=== PATIENT | female | born 1980 | race Caucasian/White ===

== ENCOUNTER 2022-05-26 08:50 | Outpatient (CLI) | payer OTHER, SELFPAY ==
--- OUTSIDE RECORDS SUMMARY | 2022-05-26 08:53 | XMS_ITS | Encounter Summary ---
:1980 Author Organization [facility] Address [address] [place] [address] Care Team Providers Name Role Phone Unavailable Primary Care Provider Unavailable Reason for Visit Reason Comments Med Refill Encounter Details Date Type Department Care Team Description 01/24/2018 Refill Department of Obstetrics and Zachery, Ernesto Ca Jr., Med [facility] [address] [place] [address] [place] [address] [phone] Social History Tobacco Use Types Packs/Day Years Used Date Smoking Tobacco: Never Sex Assigned at Date Recorded Not on file documented as of this encounter Miscellaneous Notes Telephone Encounter - Stephanie Null RDN, [place] - 01/24/2018 8:06 AM CDT Nurse review: Unable to pend medication; Not on medication profile Primary Provider: No primary care provider on file. Request coming to attention Dr. Bingham Name of medication: Valacyclovir Strength: 500 mg tablets Frequency: take 1 tablet by mouth twice daily for 3 days Quantity: 6 Refills: 0 Last Refill: 04/12/17 Pharmacy: [facility] documented in this encounter Plan of Treatment Not on filedocumented as of this encounter Visit Diagnoses Not on filedocumented in this encounter
--- OUTSIDE RECORDS SUMMARY | 2022-05-26 08:53 | XMS_ITS | Encounter Summary ---
:1980 Author Organization [facility] Address [address] [place] [address] Care Team Providers Name Role Phone Unavailable Primary Care Provider Unavailable Reason for Visit Reason Comments Med Refill Encounter Details Date Type Department Care Team Description 02/08/2018 Refill Department of Obstetrics and Zachery, Ernesto Ca Jr., Med Refill Gynecology in Zoe Villagomez [place] [address] [address] [place], [place] [phone] [phone] Social History Tobacco Use Types Packs/Day Years Used Date Smoking Tobacco: Never Sex Assigned at Date Recorded Not on file documented as of this encounter Plan of Treatment Not on filedocumented as of this encounter Visit Diagnoses Not on filedocumented in this encounter
--- OUTSIDE RECORDS SUMMARY | 2022-05-26 08:53 | XMS_ITS | Encounter Summary ---
:1980 Author Organization [facility] Address [address] [place] [address] Care Team Providers Name Role Phone Unavailable Primary Care Provider Unavailable Encounter Details Date Type Department Care Team Description 01/27/2021 Orders Only [facility] Sa santo Brown M.D. [address] [place] [address] [phone] (Wo rk) Social History Tobacco Use Types Packs/Day Years Used Date Smoking Tobacco: Never Sex Assigned at Date Recorded Not on file documented as of this encounter Plan of Treatment Not on filedocumented as of this encounter Visit Diagnoses Not on filedocumented in this encounter
--- OUTSIDE RECORDS SUMMARY | 2022-05-26 08:53 | XMS_ITS | Encounter Summary ---
:1980 Author Organization [facility] Address [address] [place] [address] Care Team Providers Name Role Phone Unavailable Primary Care Provider Unavailable Reason for Visit Reason Comments PAT Nurse Jaye Encounter Details Date Type Department Care Team Description 05/31/2020 Clinical Communication Division of PAT Thompson Nurse Jaye [facility] Internal Sylvia Lawrence [facility] [phone] [facility] (Work) [place], [place] [address] [place] [address] Social History Tobacco Use Types Packs/Day Years Used Date Smoking Tobacco: Never Sex Assigned at Date Recorded Not on file documented as of this encounter Miscellaneous Notes Telephone Encounter - Ruy Thompson R.N., Baseball Player - 05/31/2020 8:16 AM CDT COVID-19 Nurse Line Screening ASSESSMENT COVID 19 Screening Have you had close contact with a person who has a LABORATORY CONFIRMED case of COVID-19?: Yes - Continue screening. In the last 48 hours have you had any of the following symptoms?: New sore throat Do you have any urgent symptoms?: None- Patient meets criteria for testing. PLAN Endpoint recommendation: Screening positive, testing indicated, advised to be swabbed for COVID-19, sent to [place] located [address] to back of the clinic; cannot access from main parking lot. Testing hours are daily 10 am to 6 pm. When you arrive stay in your car and someone will direct you. Care Points provided: STANDARD PRECAUTIONS FOR ALL PATIENTS: Wash hands often with soap and water for at least 20 seconds, especially after blowing your nose, coughing, sneezing, or having been in a public place. If soap and water aren't available, use a hand television news anchor that contains at least 60% alcohol. Avoid close contact with anyone who may be exhibiting respiratory symptoms such as coughing and sneezing. Avoid touching your eyes, nose and mouth. Clean and disinfect frequently touched surfaces daily. Cover your mouth and nose with a cloth face cover when around others or in public. The cloth face cover is not a substitute for social distancing. Continue to keep about 6 feet between yourself andothers. Monitor for symptoms. Do not take your temperature within 30 minutes of exercise. If your test or screen is negative and new symptoms develop please contact your provider if it has been greaterthan 72 hours since you were tested. Educational Resource: https://www.cdc.gov/coronavirus/2019-ncov/ nnzzhdj-grvucng-ffyb/index.html RECOMMENDATIONS TESTING CRITERIA IS MET: Stay home except to get medical care. Quarantine for 14 days if exposed to someone with a laboratory confirmed case of COVID-19 exposure regardless of your test results. Avoid public areas and public transportation. Separate yourself from other people and stay in a specific sick room if possible. Wear a cloth face covering, over your nose and mouth if youmust be around other people even at home). Cover your nose and mouth when coughing or sneezing. Contact employer/occupational health department to notify them that they are being tested. Seek emergent care if any of the following occur: 1) Trouble breathing, 2) Bluish lips or face, 3) Persistent pain or pressure in the chest, 4) Newly confused or unable to stay alert and awake. Notify appropriate care provider if any new or worsening symptoms. You may need re-testing if it has been greater than 72 hours after a negative COVID- 19 test result. Education Resources: https://www.cdc.gov/coronavirus/2019- ncov/kn-jtc-qye-sick/dnkne-kukh-njzi.html SELF CARE FOR ALL PATIENTS: Take breaks from watching, reading, or listening to news stories. Make time to unwind. Try to do some other activities you enjoy. Connect with others. Be creative in keepingconnected with loved ones, especially those at high risk. Try healthy coping strategies such as meditation, relaxation, exercise, healthy eating habits, and avoid alcohol and drugs. Education: patient/caregiver Patient/caregiver able to teach back Patient agreeable to plan of care: Yes The following references were used: [facility] novel coronavirus (COVID- 19) resources Nursing judgement documented in this encounter Plan of Treatment Not on filedocumented as of this encounter Visit Diagnoses Not on filedocumented in this encounter
--- OUTSIDE RECORDS SUMMARY | 2022-05-26 08:53 | XMS_ITS | Encounter Summary ---
:1980 Author Organization [facility] Address [address] [place] [address] Care Team Providers Name Role Phone Unavailable Primary Care Provider Unavailable Encounter Details Date Type Department Care Team Description 12/30/2015 Hospital Encounter HX [facility] Logan Hernandez Jr., M.D. [address] [place] [address] [phone] (Wo rk) Social History Tobacco Use Types Packs/Day Years Used Date Smoking Tobacco: Never Assessed Sex Assigned at Date Recorded Not on file documented as of this encounter Last Filed Vital Signs Vital Sign Reading Time Taken Comments Blood Pressure 112/66 12/30/2015 10:05 AM CDT Pulse - - Temperature - - Respiratory Rate - - Oxygen Saturation - - Inhaled Oxygen Concentration - - Weight 47.4 kg (104 lb 8 oz) 12/30/2015 10:05 AM CDT Height - - Body Mass Index - - documented in this encounter Progress Notes Logan Hernandez Jr., M.D. - 12/30/2015 10:00 AM CDT [id number] CHIEF COMPLAINT/REASON FOR VISIT Patient complains of vaginal and vulvar irritation. It started a couple days after surgery which shehad 1 week ago. It started with some vaginal discharge and then vulvar irritation. It has been very irritating. She started Instant Buckingham soaks yesterday and has had some slight improvement. She did take some Benadryl and slept better. She has not been sexually active. She has had no fevers. PHYSICAL EXAMINATION VITAL SIGNS: Please see medical record for vitals. ABDOMEN: Soft, nontender. Incisions have healed well. GENITOURINARY: External genitalia shows some ulcerative lesions, similar in appearance to type 1 herpes, though she has no history of this or any recent exposure. She does have some cracking of her skin, and this is mostly on the labia majora region. Internally she does have some discharge. Wet prep is sent. Cervix appears to be mildly irritated. Vaginal delgado are normal. This area is very tender. IMPRESSION/REPORT/PLAN Patient with what appears to be an allergic reaction to surgical prep but possibly mild bacterial superinfection. We have sent test for herpes as well as a wet prep. We will start her on a low dose of prednisone 20 mg a day for a few days as well as start her on Keflex 250 mg 4 times a day. She will continue with Instant Buckingham soaks. She will let us know tomorrow how she is doing. Logan Hernandez M.D./deanna Electronically Signed By: LOGAN HERNANDEZ MD On: 12/30/2015 02:49 PM Source: [facility] [email or web address] Document Id: [id number] documented in this encounter Miscellaneous Notes Miscellaneous - Kay Hassan R.N. - 05/31/2016 10:40 AM CDT *Medication Refill Msg Document Contains Addenda Addendum by LOGAN HERNANDEZ MD on May 31, 2016 12:29:58 CDT From: LOGAN HERNANDEZ MD To: KAY HASSAN RN; Sent: 05/31/2016 12:29:58 CDT Subject: RE: *Medication Refill Msg Actions: Notify patient of Future Order Addendum by LOGAN HERNANDEZ MD on May 31, 2016 12:29:48 CDT Submitted: Order:valACYclovir (Valtrex 500 mg oral tablet) 1 tab(s) PO 2xDay Qty: 6 tab(s) Duration: 3 day(s) Refills: 10 Substitutions Allowed Route To Pharmacy - [facility] [id number] Signed by LOGAN HERNANDEZ MD From: KAY HASSAN RN To: LOGAN HERNANDEZ MD; Sent: 05/31/2016 10:40:56 CDT Subject: *Medication Refill Msg Caller is: ( ) Patient ( ) Mother ( ) Father ( ) Spouse ( ) Daughter ( ) Son ( ) Pharmacy ( ) Other: Provider: Pharmacy:[facility] Name of Medications Needing Refill:valacyclovir 500mg tabs - one tab po twice daily for 3 days prnrecurrence Last Refill Date:02-29-16 #6 Additional Information: Last / Future Appointment:01-08-16 Disposition: ( ) Send to Pharmacy ( ) Call to Pharmacy ( ) 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 Script ( ) Mail Rx to Patient Source: [facility] [employer] Document Id: [id number] Electronically signed by [facility] Tie Bucker [id number] at 02/26/2017 3:19 PM CDT Miscellmeghana - Maddie Montemayor RJoseNJose - 12/30/2015 10:30 AM CDT Floor Trader Documentation Floor Trader Documentation Entered On: 12/30/2015 16:35 CDT Performed On: 12/30/2015 10:30 CDT by MADDIE MONTEMAYOR LPN Floor Trader Documentation Exam/Procedure Performed : pelvic exam CD Floor Trader Present : Yes CD Floor Trader Name : Maddie Montemayor LPN Present in Room During Exam/Procedure : Alone MADDIE MONTEMAYOR LPN - 12/30/2015 16:35 CDT Source: [facility] AutoquakeCHART Document Id: [id number] CDT!6 Nenacellmeghana - Maddie Montemayor R.N. - 12/30/2015 10:05 AM CDT Adult Mainstreaming Facilitator Intake/History Adult Mainstreaming Facilitator Intake/History Entered On: 12/30/2015 10:05 CDT Performed On: 12/30/2015 10:05 CDT by MADDIE MONTEMAYOR LPN Intake Chief Complaint : post op Systolic Blood Pressure : 112 mmHg Diastolic Blood Pressure : 66 mmHg NIBP Mean : 81 mmHg BP Location : Left upper extremity Blood Pressure Cuff Size : Regular Actual Weight : 47.4 kg(Converted to: 104 lb 8 oz) Dosing Weight Clinic : 47.4 kg SIMMADDIE LPN - 12/30/2015 10:05 CDT General Info Languages : [place] Is Patient Female and 13-50 no hysterectomy : Yes Status : Patient denies Are you ? : No MADDIE MONTEMAYOR LPN - 12/30/2015 10:05 CDT Subjective Pain Symptoms : No MADDIE MONTEMAYOR LPN - 12/30/2015 10:05 CDT Dependent Habits Smoking Status : Never smoker Tobacco 2A : No Tobacco Use/Currently Using : No Tobacco Use/Last 30 Days : No Tobacco Use/Last 12 months : No MADDIE MONTEMAYOR LPN - 12/30/2015 10:05 CDT Source: [facility] POWERCHART Document Id: [id number] CDT!23 documented in this encounter Plan of Treatment Not on filedocumented as of this encounter Procedures Procedure Name Priority Date/Time Associated Comments Diagnosis HERPES SIMPLEX VIRUS Routine 12/30/2015 10:33 AM Results for this PCR CDT procedure are i n the results section. WET PREP EXAM, Routine 12/30/2015 10:33 AM Result s for this UROGENITAL CDT procedure are i n the results section. documented in this encounter Results Herpes Simplex Virus PCR (12/30/2015 10:33 AM CDT) athologist Signature HXHSV PCR VAGINAL POWERCHART [facility] HSV 1 PCR, B Positive Negative POWERCHART HSV 2 PCR, B Negative Negative POWERCHART Comment: ADDITIONAL INFORMATIO N Analyte Specific Reagent: This test was developed and its performance characteristics determined b y [facility]. It has not been cleared or approved by the U.S. Food and Drug Administration. Test Performed by: [facility] - [address] [address] Leather Softener: Eloy Starr II, M.D., Ph.D. Specimen (Source) Anatomical Collection Method Collection Time Re ceived Time Location / / Volume Laterality Nicole Review 12/30/2015 10:33 AM CDT Logan Hernandez Jr., M.D. LAB MICROBIOLOGY - GENERAL O DEJA Performing Organization Address City/[facility] Phon e Number POWERCHART Wet Prep Exam, Urogenital (12/30/2015 10:33 AM CDT) P athologist Signature HXWet Prep POWERCHART HXFinal No yeast, POWERCHART Trichomonas , clue cells, or sperm seen. Specimen (Source) Anatomical Collection Method Collection Time Re ceived Time Location / / Volume Laterality Vagina 12/30/2015 10:33 AM CDT Logan Hernandez Jr., M.D. LAB MICROBIOLOGY - GENERAL O DEJA Performing Organization Address City/State/[facility] Phon e Number POWERCHART documented in this encounter Visit Diagnoses Not on filedocumented in this encounter
--- OUTSIDE RECORDS SUMMARY | 2022-05-26 08:53 | XMS_ITS | Encounter Summary ---
:1980 Author Organization [facility] Address [address] [place] [address] Care Team Providers Name Role Phone Unavailable Primary Care Provider Unavailable Encounter Details Date Type Department Care Team Description 07/07/2017 Hospital Encounter HX [facility] Logan Hernandez Jr., M.D. [address] [place] [address] [phone] (Wo rk) Social History Tobacco Use Types Packs/Day Years Used Date Smoking Tobacco: Never Sex Assigned at Date Recorded Not on file documented as of this encounter Last Filed Vital Signs Vital Sign Reading Time Taken Comments Blood Pressure 108/60 07/07/2017 9:56 AM CDT Pulse 84 07/07/2017 9:56 AM CDT Temperature - - Respiratory Rate 16 07/07/2017 9:56 AM CDT Oxygen Saturation - - Inhaled Oxygen Concentration - - Weight 51 kg (112 lb 7 oz) 07/07/2017 9:56 AM CDT Height 151.4 cm (4' 11.61) 07/07/2017 9:56 AM CDT Body Mass Index 22.25 07/07/2017 9:56 AM CDT documented in this encounter Medications at Time of Discharge Medication Sig Dispensed Refills Start Date End Date LORazepam (ATIVAN) 0.5 mg Take 1 tablet by 0 01/201702/08/2018 tablet mouth 2 (two) times a day as needed. documented as of this encounter H&P Notes Logan Hernandez Jr., M.D. - 07/07/2017 9:43 AM CDT [id number] CHIEF COMPLAINT/REASON FOR VISIT Annual examination. HISTORY OF PRESENT ILLNESS Kip is a 37-year-old 2, para 2-0-0-2 female status post BTC with LMP of 06/15/2017 who presents today for her annual examination. She experiences intermittent cuts in her vaginal area ever since her type 1 HSV vulvar sores healed. Her periods have been reasonable, with first day typically heavy. Bladder and bowel function have been fine. The patient reports worsened anxiety and becomes easily tearful, mostly related to her job. She willbe switching jobs in the near future. Kip realizes that her anxiety is better managed when she exercises regularly. She does not want to take something daily, though is interested in taking somethingas needed. Her migraines have been very well-managed with as needed Imitrex. Kip is due for pap smear. She otherwise follows with Dr. Guy Lange for the rest of her preventative care services. There are no further concerns at this time. MEDICATIONS Imitrex as needed. ALLERGIES Nubain. SYSTEMS REVIEW Positive for vaginal fissures and anxiety. All other systems reviewed and negative except per HPI. PAST MEDICAL/SURGICAL HISTORY 1. Type 1 HSV. 2. Migraine headaches. 3. Arthroscopy of knee joint. 4. section x2, with the last one on 05/31/2007 for a viable girl. 5. Laparoscopic bilateral tubal coagulation on 12/23/2015. PREVENTIVE SERVICES: Patient receives preventative services at [facility] and these records are currently not available for my review. SOCIAL HISTORY Patient does not smoke. She occasionally drinks. Employed, will be switching jobs soon. Not currently exercising regularly but is planning on resuming. FAMILY HISTORY No known history of cancer. VITAL SIGNS HEIGHT: 151.4 cm. WEIGHT: 51.0 kg. BMI: 22.25 kg/m2. TEMP: 37.3 Deg C. PULSE: 84 /min. RESP RATE: 16 /min. SYSTOLIC: 108 mmHg. DIASTOLIC: 60 mmHg. PHYSICAL EXAMINATION GENERAL: Patient appears well groomed and well nourished. No acute distress. Oriented times three. SKIN: Normal without any evidence of rashes or lesions. HEAD: Normocephalic. ENT: Trachea midline. LYMPH NODES: Neck is supple. No significant adenopathy. THYROID: Not enlarged. Regular in contour. BREASTS: Denser tissue noted in the upper portions bilaterally. There are no masses, no lymphadenopathy and no nipple discharge. Please note that medical sociologist, Lima Cantu, was present as senior business analyst for breast exam. HEART: Regular rate and rhythm without murmurs, rubs or gallops. No evidence of any peripheral vascular disease. LUNGS: Clear to auscultation with good inspiratory effort. ABDOMEN: Soft and nontender. No masses, hepatosplenomegaly or hernias noted. No enlarged groin nodespalpable. PELVIS: Vagina and cervix appear normal without lesions, discharge or rashes. There is a closed fissure noted just above her urethra. Pap smear is done. Uterus is anteverted, small, mobile and nontender. Adnexa are without masses or tenderness. Please note that medical sociologist, Lima Cantu, was presentas senior business analyst for pelvic exam. RECTUM: Deferred. GENITALIA: External genitalia, Bartholin's, urethral, and [place]'s glands within normal limits. DIAGNOSTIC Pap smear was done today with results pending. IMPRESSION/REPORT/PLAN 37-year-old 2, para 2-0-0-2 female status post BTC with normal menstrual cycles. Significantfor vaginal fissures and anxiety. Normal SKEWER UP examination besides for closed fissure. PLAN: 1. Health care maintenance: Pap smear was done today with results pending. Routine mammogram will begin at age 38. Recommendations are given for good posture. Patient will follow up with Dr. Lange for the remained of her preventative care services. 2. Contraception: Status post BTC. 3. Vaginal fissures: I recommended using lubrication with intercourse, and regular soaking such as with Instant [place]. I discouraged using toilet paper. We may consider trying topical estrogen for local administration. 4. Anxiety: Patient would like something to take as needed, and elects to try lorazepam 0.5 mg tablet by mouth up to twice a day as needed for anxiety. I discussed how this medication works, reviewed potential side effects, and answered any questions. I discouraged daily reliance on this medication, and recommended following up if she needs something daily. Patient will be changing jobs soon, and plans on making lifestyle modifications including getting back into exercise for management of her symptoms. 5. Follow up: Patient will return in one year for annual exam. She will contact the clinic with any CORPORATE FITNESS PROGRAM COORDINATOR related concerns. This document serves as a record of services personally performed by Logan Hernandez MD. It was created on their behalf by Lima Cantu, a trained medical sociologist. The creation of this record is based on the scribe's personal observations and the provider's statements to them. This document has been check ed and approved by the attending provider. Logan Hernandez M.D./shiela Electronically Signed By: LOGAN HERNANDEZ MD On: 07/07/2017 12:50 PM Source: [facility] [email or web address] Document Id: [id number] documented in this encounter Miscellaneous Notes Miscellaneous - Logan Hernandez Jr., M.D. - 07/18/2017 9:47 AM CDT From: LOGAN HERNANDEZ MD To: KIP GREENE Sent: 07/18/2017 09:47:07 CDT joe Shin for taking my call. Source: [facility] POWERCHART Document Id: [id number] Telephone Encounter - Kalee Pedersen L.P.N. - 07/15/2017 3:41 PM CDT FW: Follow-up on Test From: KALEE PEDERSEN LPN ( Obstetrics/Gynecology Nurse) To: LOGAN HERNANDEZ MD; Sent: 07/15/2017 15:41:18 CDT Subject: FW: Follow-up on Test From: KIP GREENE To: [facility] (CORPORATE FITNESS PROGRAM COORDINATOR) ( Obstetrics/Gynecology Nurse) Sent: 07/15/2017 03:39 p.m. CDT Subject: Follow-up on Test Thank you for your message. It has been successfully sent to the appropriate care team. Hi Dr. Hernandez, Yes, please do contact me next week. Preferably Tuesday if possible as I am out of town for work Tuesday-Tuesday. I want to understand what the test results mean and what I can or should do. Thank you, Kip Marerinn From: LOGAN HERNANDEZ MD To: KIP GREENE Sent: 07/15/2017 13:12:03 CDT Kip, your pap is ok. HPV test shows you have an exposure to the HPV virus, but not to the types weare concerned about neo are linked to cervical cancer. I would repeat your pap in one year. Happy totalk about this next week if you wish. Source: [facility] Document Id: [id number] Logan Pino Jr., M.D. - 07/15/2017 1:12 PM CDT From: LOGAN HENRANDEZ MD To: KIP GREENE Sent: 07/15/2017 13:12:03 CDT Kip, your pap is ok. HPV test shows you have an exposure to the HPV virus, but not to the types weare concerned about neo are linked to cervical cancer. I would repeat your pap in one year. Happy totalk about this next week if you wish. Source: [facility] Document Id: [id number] [place] - Court Romo L.P.N. - 07/07/2017 9:56 AM CDT Adult Business Continuity Management Director Intake/History Adult Business Continuity Management Director Intake/History Entered On: 07/07/2017 9:59 CDT Performed On: 07/07/2017 9:[address] ROMO LPN Intake Chief Complaint : Annual exam LMP Date : 06-15-2017 Temperature Core : 37.3 DegC(Converted to: 99.1 DegF) Peripheral Pulse Rate : 84 /min Respiratory Rate : 16 /min Systolic Blood Pressure : 108 mmHg Diastolic Blood Pressure : 60 mmHg NIBP Mean : 76 mmHg Height : 151.4 cm(Converted to: 5 ft 0 inch(es), 60 inch(es)) Actual Weight : 51.0 kg(Converted to: 112 lb 7 oz) Dosing Weight Clinic : 51 kg Clinic BSA : 1.46 Body Mass Index : 22.25 kg/m2 COURT ROMO LPN - 07/07/2017 9:56 CDT General Info Information Given By : Patient Languages : Faroese Is Patient Female and 13-50 no hysterectomy : Yes Status : Patient denies Are you ? : No COURT ROMO LPN - 07/07/2017 9:56 CDT Subjective Pain Symptoms : No COURT ROMO LPN - 07/07/2017 9:56 CDT Dependent Habits Exposure to Tobacco Smoke : Lives with someone who smokes Smoking Status : Never smoker Tobacco 2A : No Tobacco Use/Currently Using : No Tobacco Use/Last 30 Days : No Tobacco Use/Last 12 months : No COURT ROMO LPN - 07/07/2017 9:56 CDT Source: [facility] Document Id: [id number] CDT!30 documented in this encounter Plan of Treatment Not on filedocumented as of this encounter Visit Diagnoses Not on filedocumented in this encounter
--- OUTSIDE RECORDS SUMMARY | 2022-05-26 08:53 | XMS_ITS | Encounter Summary ---
:[address] [facility] Address [address] [place] [address] Care Team Providers Name Role Phone Unavailable Primary Care Provider Unavailable Encounter Details Date Type Department Care Team Description 12/23/2015 Hospital Encounter HX NO MAPPING Robe Bingham Jr., M.D. [address], [place] [phone] (Wo rk) Social History Tobacco Use Types Packs/Day Years Used Date Smoking Tobacco: Never Assessed Sex Assigned at Date Recorded Not on file documented as of this encounter Plan of Treatment Not on filedocumented as of this encounter Procedures Procedure Name Priority Date/Time Associated Comments Diagnosis ZZPATHOLOGY NON-ASSISTANT ART DIRECTOR Routine 12/23/2015 12:00 Resu lts for this CYTOLOGY AM CDT procedure are i n the results section. ZZPATHOLOGY NON-ASSISTANT ART DIRECTOR Routine 12/23/2015 12:00 Resu lts for this CYTOLOGY AM CDT procedure are i n the results section. documented in this encounter Results ZZPATHOLOGY NON-ASSISTANT ART DIRECTOR CYTOLOGY (12/23/2015 12:00 AM CDT) Specimen (Source) Anatomical Location Collection Method / Collectio n Time Received Time / Laterality Volume 12/23/2015 Narrative [facility] - 12/29/19 16 11:32 AM CDT Historical Provider LAB PATHOLOGY/CYTOLOGY ORDER HELADIO Performing Organization Address City/State/ZIP Code Phon e Number [facility] ZZPATHOLOGY NON-ASSISTANT ART DIRECTOR CYTOLOGY (12/23/2015 12:00 AM CDT) Specimen (Source) Anatomical Location Collection Method / Collectio n Time Received Time / Laterality Volume 12/23/2015 [facility] - 12/29/19 16 11:32 AM CDT PATIENT IMAGES Choose the Image button to view related documents. Historical Provider LAB PATHOLOGY/CYTOLOGY ORDER HELADIO Performing Organization Address City/State/ZIP Code Phon e Number [facility] documented in this encounter Visit Diagnoses Not on filedocumented in this encounter
--- OUTSIDE RECORDS SUMMARY | 2022-05-26 08:53 | XMS_ITS | Encounter Summary ---
:1980 Author Organization [facility] Address [address] [place] [address] Care Team Providers Name Role Phone Unavailable Primary Care Provider Unavailable Encounter Details Date Type Department Care Team Description 12/22/2015 Hospital Encounter HX [facility] Logan Hernandez Jr., M.D. [address] [place] [address] [phone] (Wo rk) Social History Tobacco Use Types Packs/Day Years Used Date Smoking Tobacco: Never Assessed Sex Assigned at Date Recorded Not on file documented as of this encounter Last Filed Vital Signs Vital Sign Reading Time Taken Comments Blood Pressure 126/72 12/22/2015 2:19 PM CDT Pulse 66 12/22/2015 2:19 PM CDT Temperature - - Respiratory Rate - - Oxygen Saturation - - Inhaled Oxygen Concentration - - Weight 46.1 kg (101 lb 10.1 oz) 12/22/2015 2:19 PM CDT Height - - Body Mass Index - - documented in this encounter H&P Notes Logan Hernandez Jr., M.D. - 12/22/2015 2:15 PM CDT [id number] CHIEF COMPLAINT/REASON FOR VISIT Consultation for sterilization. HISTORY OF PRESENT ILLNESS Kip is a 35-year-old, 2, para 2-0-0-2 female who presents to the clinic in consultation for sterilization. She is positive that she would like to proceed with sterilization. She states that her periods are regular when she is not on control. Dr. Cisneros prescribed Reclipsen for to skip periods since they cause very bad migraines. She recently ran out of her medication and she states that her migraines actually resolved. Patient takes sumatriptan at the start of her headaches and this works well for her. Patient says that she has pain around her left lower quadrant whenever she sneezes. She does not have leakage of urine when coughing. No pain with sexual intercourse. MEDICATIONS Reclipsen 0.15 mg-0.03 mg by mouth daily. Sumatriptan ALLERGIES Nubain causes throat swelling. SYSTEMS REVIEW Please see HPI for pertinent positives, otherwise rest of ROS is negative. PAST MEDICAL/SURGICAL HISTORY Arthroscopy of knee joint. section 2x with the last one on 05/31/2007 for a viable girl. PREVENTIVE SERVICES: Patient receives preventative services at [facility] and these records are currently not available for my review. SOCIAL HISTORY Patient does not smoke. She occasionally drinks. She works in [employer]. PHYSICAL EXAMINATION VITAL SIGNS: weight 46.1kg, blood pressure 126/72 GENERAL: Patient appears well groomed and well nourished. No acute distress. Oriented times three. HEAD: Normocephalic. ENT: Trachea midline. LYMPH NODES: Neck is supple. No significant adenopathy. THYROID: Not enlarged. Regular in contour. HEART: Regular rate and rhythm without murmurs, rubs or gallops. No evidence of any peripheral vascular disease. LUNGS: Clear to auscultation with good inspiratory effort. ABDOMEN: Soft and nontender. No masses, hepatosplenomegaly or hernias noted. No enlarged groin nodespalpable. PELVIS: Vagina and cervix appear normal without lesions, discharge or rashes. Uterus is anteverted, small, mobile and nontender. Adnexa are without masses or tenderness. Please note that wild Raphael scribe was present as a visual merchandising specialist for pelvic exam. IMPRESSION/REPORT/PLAN 1. Sterilization: Patient elects to proceed with laparoscopic BTL, and this is scheduled for 12/23/15 at [facility]. I will check for any possible causes for LLQ pain corresponding to her section scar at that time. Pre-op exam is done today, and sleep apnea screen is negative. Surgical consent is signed. Patient is healthy and cleared to proceed with surgery. She knows to be NPO for 8 hours prior to procedure. Risks, benefits and alternatives were discussed today. 2. Follow up: Patient will present to [facility] on 12/23/2015 for BTL. She will contact the clinic prior to that time with questions or concerns. This document serves as a record of services personally performed by Logan Hernandez MD. It was created on their behalf by Saida Robles, a trained medical records supervisor. The creation of this record is basedon the scribe's personal observations and the provider's statements to them. This document has been c hecked and approved by the attending provider. Logan Hernandez M.D./liliam Electronically Signed By: LOGAN HERNANDEZ MD On: 12/22/2015 03:00 PM Source: [facility] MHSDOLBEYNONRADSYS Document Id: [id number] documented in this encounter Miscellaneous Notes Telephone Encounter - Makenzie Carmichael, L.P.N. - 12/31/2015 12:04 PM CDT *Phone Message From: MAKENZIE CARMICHAEL LPN ( Obstetrics/Gynecology Nurse) To: LOGAN HERNANDEZ MD; Sent: 12/31/2015 12:04:56 CDT Subject: *Phone Message Caller is: ( x ) Patient ( ) Mother ( ) Father ( ) Spouse ( ) Daughter ( ) Son ( ) Pharmacy ( ) Other: Physician: Patient MRN #: Reason for Call: Patient called and left message with an update per Dr. Lange. States that they medication has helped and the swelling has gone down. The spots have mostly gone away but notices irritation with draining. Any other questions call [phone] Message: Advice/Action: Source used: ( ) Verbalizes understanding of instructions ( ) Instructed to call back if symptoms worsen or do not resolve ( ) Refused to see provider ( ) Appointment Scheduled ( ) OK to leave message on voice mail ( ) Patient told to expect return call: ( ) today ( ) tomorrow ( ) next work day ( ) Patient's email ( ) Patient told physician out of office, will call upon return call on ( ) ( ) Patient told physician out of office, routed to other physician ( ) Other ( ) Call back telephone number ( ) Call back cell phone number ( ) Source: [facility] POWERCHART Document Id: [id number] Electronically signed by Conversion, [facility] Open Hearth Furnace Operator [id number] at 02/26/2017 3:19 PM CDT Telephone Encounter - Conversion, Historical Provider Ser - 12/29/2015 8:04 AM CDT *Phone Message/Zachery Document Contains Addenda Addendum by HARINDER ZIMMER LPN on December 30, 2015 09:49:33 CDT Appt. scheduled. Addendum by LOGAN HERNANDEZ MD on December 30, 2015 09:44:06 CDT From: LOGAN HERNANDEZ MD To: Obstetrics/Gynecology Nurse; Sent: 12/30/2015 09:44:06 CDT Subject: RE: *Phone Message/Zachery coming in in 15 Addendum by MADDIE MONTEMAYOR LPN on December 30, 2015 08:36:54 CDT From: MADDIE MONTEMAYOR LPN ( Obstetrics/Gynecology Nurse) To: LOGAN HERNANDEZ MD; Sent: 12/30/2015 08:36:54 CDT Subject: RE: *Phone Message/Zachery Kip called with an update this morning - she is still very sore and has blisters. She did everything that you suggested yesterday. [phone] Addendum by LOGAN HERNANDEZ MD on December 29, 2015 11:32:04 CDT From: LOGAN HERNANDEZ MD To: Obstetrics/Gynecology Nurse; Sent: 12/29/2015 11:32:04 CDT Subject: RE: *Phone Message/Zachery I talked with her, can you call her tomorrow afternoon if she does not call us to check if its better. Will use benadryl and instant ocean. Addendum by MADDIE MONTEMAYOR LPN on December 29, 2015 08:11:55 CDT From: MADDIE MONTEMAYOR LPN ( Obstetrics/Gynecology Nurse) To: LOGAN HERNANDEZ MD; Sent: 12/29/2015 08:11:55 CDT Subject: FW: *Phone Message/Zachery From: YOSEF SIDDIQUI ([facility] Floorperson) To: Obstetrics/Gynecology Nurse; Sent: 12/29/2015 08:04:26 CDT Subject: *Phone Message/Zachery Caller is: ( x) Patient ( ) Mother ( ) Father ( ) Spouse ( ) Daughter ( ) Son ( ) Pharmacy ( ) Other: Physician: Patient MRN #: Reason for Call: Patient is had surgery last Tuesday and is really sore from all the drainage she ishaving. She has tried Epson Salt baths ad yeast infection cream. Nothing helps. Is there anything else she can do? Please call her at [phone] Message: Advice/Action: Source used: ( ) Verbalizes understanding of instructions ( ) Instructed to call back if symptoms worsen or do not resolve ( ) Refused to see provider ( ) Appointment Scheduled ( ) OK to leave message on voice mail ( ) Patient told to expect return call: ( ) today ( ) tomorrow ( ) next work day ( ) Patient's email ( ) Patient told physician out of office, will call upon return call on ( ) ( ) Patient told physician out of office, routed to other physician ( ) Other ( ) Call back telephone number ( ) Call back cell phone number ( ) Source: [facility] POWERCHART Document Id: [id number] Miscellaneous - Maddie Montemayor RJoseN. - 12/22/2015 3:11 PM CDT Educational Aide Documentation Educational Aide Documentation Entered On: 12/22/2015 15:12 CDT Performed On: 12/22/2015 15:11 CDT by MADDIE MONTEMAYOR LPN Educational Aide Documentation Exam/Procedure Performed : pelvic exam CD Educational Aide Present : Yes CD Educational Aide Name : Saida Robles medical records supervisor Present in Room During Exam/Procedure : Alone MADDIE MONTEMAYOR LPN - 12/22/2015 15:11 CDT Source: [facility] POWERCHART Document Id: [id number] CDT!6 Telephone Encounter - Maddie Montemayor RBoo - 12/22/2015 2:54 PM CDT FB surgery prior auth Document Contains Addenda Addendum by LYLE PHELPS on December 23, 2015 10:19:08 CDT From: LYLE PHELPS ([facility] Fixed Income Director/Prior Authorizations) To: Obstetrics/Gynecology Nurse; Sent: 12/23/2015 10:19:08 CDT Subject: RE: FB surgery prior auth No auth needed per [employer] From: MADDIE MONTEMAYOR LPN ( Obstetrics/Gynecology Nurse) To: [facility] Fixed Income Director/Prior Authorizations; Sent: 12/22/2015 14:54:48 CDT ! Subject: FB surgery prior auth [facility] Surgery Clinic Checklist Patient Contact Number: [phone] Surgeon: Zachery Surgical Service: (_) Orthopedics (_) General surgery (_) Ophthalmology (_) Podiatry (_) ENT (_) Urology (x) OB / Gynecology (_) Other Date of Surgery: 12-23-15 Place of Surgery: [facility] Pre-Admit FIN: _ Procedure (as written on Consent): laparoscopic bilateral tubal coagulation Right, Left, Bilateral, N/A: bilateral Diagnosis (reason for surgery): requests sterilization ICD-10: Z30.2 CPT: 16093 Work Comp: (_) No (_) Yes Surgeon Anticipated Time: _ Case Type: (x) Outpatient (_) AM Admit (_) Inpatient (_) Other Pre-op MD: _ Post-Op Appt:(time frame when to return) _ Surgery Brochure Given: (x) Yes (_) No (_) Mailed to Patient SPECIAL EQUIPMENT/SPECIAL INSTRUCTION: Special Equipment needed: _ Rep Needed: (_) No (_) Yes Special Instructions/Prep: _ Radiology Needs: _ OT Post-op Appt Needed: (_) No (_) Yes Ortho Patients Only Metal Removal: (_) No (_) Yes X-Ray Location (if not done in [facility]): _ CPM Post-op: (_) No (_) Yes- please make sure MD places order If Total Joint Case: Type of Prosthesis: _ Additional equipment: _ Has other side been done: (_) No (_) Yes Source: [facility] SpineFrontier Document Id: [id number] Electronically signed by Leland [facility] Open Hearth Furnace Operator [id number] at 02/26/2017 3:19 PM CDT Miscellaneous - Maddie Montemayor, R.N. - 12/22/2015 2:19 PM CDT Adult Public Works Director Intake/History Adult Public Works Director Intake/History Entered On: 12/22/2015 14:21 CDT Performed On: 12/22/2015 14:19 CDT by MADDIE MONTEMAYOR LPN Intake Chief Complaint : consult - sterilization LMP Date : 11/25/2015 Peripheral Pulse Rate : 66 /min Systolic Blood Pressure : 126 mmHg Diastolic Blood Pressure : 72 mmHg NIBP Mean : 90 mmHg BP Location : Right upper extremity Blood Pressure Cuff Size : Regular Actual Weight : 46.1 kg(Converted to: 101 lb 10 oz) Dosing Weight Clinic : 46.1 kg MADDIE MONTEMAYOR LPN - 12/22/2015 14:19 CDT General Info Languages : Cymro Is Patient Female and 13-50 no hysterectomy : Yes Status : Patient denies Are you ? : No MADDIE MONTEMAYOR LPN - 12/22/2015 14:19 CDT Subjective Pain Symptoms : No MADDIE MONTEMAYOR LPN - 12/22/2015 14:19 CDT Dependent Habits Smoking Status : Never smoker Tobacco 2A : No Tobacco Use/Currently Using : No Tobacco Use/Last 30 Days : No Tobacco Use/Last 12 months : No MADDIE MONTEMAYOR LPN - 12/22/2015 14:19 CDT Source: [facility] SpineFrontier Document Id: [id number] CDT!25 documented in this encounter Plan of Treatment Not on filedocumented as of this encounter Visit Diagnoses Not on filedocumented in this encounter
--- OUTSIDE RECORDS SUMMARY | 2022-05-26 08:53 | XMS_ITS | Encounter Summary ---
:1980 Author Organization [facility] Address [address] [place] [address] Care Team Providers Name Role Phone Unavailable Primary Care Provider Unavailable Encounter Details Date Type Department Care Team Description 01/08/2016 Hospital Encounter HX [facility] Logan Hernandez Jr., M.D. [address] [place] [address] [phone] (Wo rk) Social History Tobacco Use Types Packs/Day Years Used Date Smoking Tobacco: Never Assessed Sex Assigned at Date Recorded Not on file documented as of this encounter Last Filed Vital Signs Vital Sign Reading Time Taken Comments Blood Pressure 118/64 01/08/2016 10:10 AM CDT Pulse - - Temperature - - Respiratory Rate - - Oxygen Saturation - - Inhaled Oxygen Concentration - - Weight 46.1 kg (101 lb 10.1 oz) 01/08/2016 10:10 AM CDT Height - - Body Mass Index - - documented in this encounter Progress Notes Logan Hernandez Jr., M.D. - 01/08/2016 9:43 AM CDT [id number] CHIEF COMPLAINT/REASON FOR VISIT Post-op. HISTORY OF PRESENT ILLNESS Kip is a 35-year-old female who is 3 weeks states post laparoscopic BTC presents to the clinic fora Post-Operative checkup. Patient states that she is doing well. Her vulvar irritation is healing fine with no issues. She had positive hsv1 cultures of vulvar sores. MEDICATIONS Valtrex 500 mg. Prescribed today. ALLERGIES Nubain SYSTEMS REVIEW Please see HPI for pertinent positives, otherwise rest of ROS is negative. PHYSICAL EXAMINATION VITAL SIGNS: weight is 46.1 kg, blood pressure is 118/64. GENERAL: Patient appears well groomed and well nourished. No acute distress. Oriented times three. PELVIS: Vagina and cervix appear normal without lesion or rashes. Please note that wild Kuhn scribe, was present as thermite bomb loader for pelvic exam. RECTUM: Deferred. GENITALIA: External genitalia: Bartholins, urethral, and Skenes glands within normal limits. IMPRESSION/REPORT/PLAN 1. Post-Operative care: Patient is doing well. Her site is healing with no issues. 2. 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 This document serves as a record of services personally performed by Logan Hernandez MD. It was created on their behalf by Saida Robles, a trained medical dir. The creation of this record is basedon the scribe's personal observations and the provider's statements to them. This document has been c hecked and approved by the attending provider Logan Hernandez M.D./liliam Electronically Signed By: LOGAN HERNANDEZ MD On: 01/08/2016 12:54 PM Modified by and Electronically Signed by: LOGAN HERNANDEZ MD On: 01/08/2016 12:54 PM Source: [facility] MHSDOLBEYNONRADSYS Document Id: [id number] documented in this encounter Miscellaneous Notes Miscellaneous - Maddie Montemayor, R.N. - 01/08/2016 10:25 AM CDT Production Welder Documentation Production Welder Documentation Entered On: 01/08/2016 10:25 CDT Performed On: 01/08/2016 10:25 CDT by MADDIE MONTEMAYOR LPN Production Welder Documentation Exam/Procedure Performed : pelvic exam CD Production Welder Present : Yes CD Production Welder Name : wild Kuhn scribe Present in Room During Exam/Procedure : Alone MADDIE MONTEMAYOR LPN - 01/08/2016 10:25 CDT Source: [facility] POWERCHART Document Id: [id number] CDT!6 Miscellaneous - Kalee Pedersen L.PJoseNJose - 01/08/2016 10:10 AM CDT Adult Systems Administration Analyst Intake/History Adult Systems Administration Analyst Intake/History Entered On: 01/08/2016 10:11 CDT Performed On: 01/08/2016 10:10 CDT by KALEE PEDERSEN LPN Intake Chief Complaint : Recheck Systolic Blood Pressure : 118 mmHg Diastolic Blood Pressure : 64 mmHg NIBP Mean : 82 mmHg BP Location : Left upper extremity Blood Pressure Cuff Size : Regular Actual Weight : 46.1 kg(Converted to: 101 lb 10 oz) Weight Source : Standing scale Dosing Weight Clinic : 46.1 kg KALEE PEDERSEN LPN - 01/08/2016 10:10 CDT General Info Languages : Montserratian Is Patient Female and 13-50 no hysterectomy : Yes Status : Patient denies Are you ? : No KALEE PEDERSEN LPN - 01/08/2016 10:10 CDT Subjective Pain Symptoms : No KALEE PEDERSEN LPN - 01/08/2016 10:10 CDT Dependent Habits Smoking Status : Never smoker Tobacco 2A : No Tobacco Use/Currently Using : No Tobacco Use/Last 30 Days : No Tobacco Use/Last 12 months : No KALEE PEDERSEN LPN - 01/08/2016 10:10 CDT Source: [facility] POWERCHART Document Id: [id number] CDT!24 documented in this encounter Plan of Treatment Not on filedocumented as of this encounter Visit Diagnoses Not on filedocumented in this encounter
--- OUTSIDE RECORDS SUMMARY | 2022-05-26 08:53 | XMS_ITS | Clinical Summary ---
:1980 Author Organization [facility] Address [address] [place] [address] Care Team Providers Name Role Phone Unavailable Primary Care Provider Unavailable Source Comments Patient records contain information from all sites at [facility]. For routine questions regarding patient records, call [phone] during business hours, M-F 8:00 AM - 5:00 PM Central Time. Record requests for emergency care only can be directed to [phone] at any time.[facility] Medications Medication Sig Dispensed Refills Start Date End Date Status escitalopram Take 1 tablet (10 30 tablet 11 09/13/2017 Active (for_LEXAPRO) 10 mg mg total) by tabletIndications: mouth daily. Anxiety Disorder Unspecified LORazepam (ATIVAN) 0.5 Take 1 tablet 12 tablet 0 02/08/2018 Active mg tablet (0.5 mg total) by mouth 2 (two) times a day as needed for anxiety. Immunizations Name Administration Dates Next Due DTaP (Infanrix, Tripedia) 08/14/2009 Influenza, Unspecified 07/16/2009, 08/01/2007, 08/16/2005 Social History Tobacco Use Types Packs/Day Years Used Date Smoking Tobacco: Never Sex Assigned at Date Recorded Not on file Last Filed Vital Signs Vital Sign Reading [...] Mass Index 22.25 07/07/2017 9:56 AM CDT Plan of Treatment Health Maintenance Due Date Last Done Comments Fasting Lipid Panel 1980 HIV Screening 1980 Hepatitis B Vaccines (1 of 1980 3 - 3-dose series) Hepatitis C Screening 1980 Mammogram 1980 DTaP,Tdap,and Td Vaccines 08/14/2019 08/14/2009, 08/14/2009 (2 - Tdap) Cervical Cancer Screening 07/07/2020 07/07/2017 Depression Screening 10/03/2021 (Annual PHQ-2) COVID-19 Vaccine (3 - 02/02/2022 09/04/2021, 08/12/2021 Booster for Pfizer series) Influenza Vaccine (#1) 2022 08/27/2014, 10/20/2012, 08/17/2011, Additional history exists Pneumococcal vaccine (0-64 Aged Out No lo nger eligible years) based on patient 's age to complete this topic Insurance Payer Benefit Plan Subscriber ID Effective Phone Address Typ e / Group Dates [facility] CHOICE [id number] 2019-Prese [phone] [address] [address] PPO [address]US [address] [place] [address]
--- OUTSIDE RECORDS SUMMARY | 2022-05-26 08:53 | XMS_ITS | Encounter Summary ---
:1980 Author Organization [facility] Address [address] [place] [address] Care Team Providers Name Role Phone Unavailable Primary Care Provider Unavailable Encounter Details Date Type Department Care Team Description 07/07/2017 Hospital Encounter HX NO MAPPING Robe Bingham Jr., M.D. [address], [place] [phone] (Wo rk) Social History Tobacco Use Types Packs/Day Years Used Date Smoking Tobacco: Never Sex Assigned at Date Recorded Not on file documented as of this encounter Medications at Time of Discharge Medication Sig Dispensed Refills Start Date End Date LORazepam (ATIVAN) 0.5 mg Take 1 tablet by 0 01/201702/08/2018 tablet mouth 2 (two) times a day as needed. documented as of this encounter Miscellaneous Notes Miscellaneous - Conversion, Historical Provider Ser - 07/07/2017 11:59 PM CDT Coding Summary-Paper Based CODING DATE: 07/19/2017 FINAL [facility] STATUS: * Discharged to Home or Self Care PAYOR: Self Pay ADMIT DX: REASON FOR VISIT DX: FINAL DX: PRINCIPAL: Z12.4 Encounter for screening for malignant neoplasm of cervix SECONDARY: PROCEDURES DOCTOR NAME DATE NOTE: The code number assigned matches the documented diagnosis and / or procedure in the patient's chart. However, the narrative phrase printed from the coding software may appear abbreviated, or result in slightly different terminology. Coded By: REGAN CRISTOBAL Date Saved: 07/19/2017 02:33 pm Source: [facility] Document Id: [id number] documented in this encounter Plan of Treatment Not on filedocumented as of this encounter Visit Diagnoses Not on filedocumented in this encounter
--- OUTSIDE RECORDS SUMMARY | 2022-05-26 08:53 | XMS_ITS | Encounter Summary ---
:1980 Author Organization [facility] Address [address] [place] [address] Care Team Providers Name Role Phone Unavailable Primary Care Provider Unavailable Encounter Details Date Type Department Care Team Description 01/24/2018 Orders Only Department of Obstetrics Logan Bingham Jr., and Gynecology in [place], [place] [address] [address] [place] [address] [phone] Social History Tobacco Use Types Packs/Day Years Used Date Smoking Tobacco: Never Sex Assigned at Date Recorded Not on file documented as of this encounter Plan of Treatment Not on filedocumented as of this encounter Visit Diagnoses Not on filedocumented in this encounter
--- OUTSIDE RECORDS SUMMARY | 2022-05-26 08:53 | XMS_ITS | Encounter Summary ---
:1980 Author Organization [facility] Address [address] [place] [address] Care Team Providers Name Role Phone Unavailable Primary Care Provider Unavailable Reason for Visit Reason Onset Date Comments Outpatient COVID-19 Testing 05/31/2020 Encounter Details Date Type Department Care Team Description 05/31/2020 External Outreach Department of Benny Escobar Infect ion Upper Internal Medicine in J, D.O. Respiratory ([place], [place] [address] Dx) [address] [place] [phone] Social History Tobacco Use Types Packs/Day Years Used Date Smoking Tobacco: Never Sex Assigned at Date Recorded Not on file documented as of this encounter Progress Notes Shena Gonzalez RJoseN. - 05/31/2020 11:32 AM CDT Encounter created for the drive-through COVID-19 testing. documented in this encounter Plan of Treatment Not on filedocumented as of this encounter Procedures Procedure Name Priority Date/Time Associated Diagnosis Comme nts SARS CORONAVIRUS-2 Routine 05/31/2020 11:34 AM Infection Upper Results for this RNA, V CDT Respiratory procedure are i n the results section. documented in this encounter Results SARS Coronavirus-2 RNA, V Symptomatic (05/31/2020 11:34 AM CDT) [facility] Method Time Signature SARS-CoV-2 Swab, 06/01/2020 MKTO Specimen Nasopharynx 4:21 PM CDT Source SARS CoV-2 Undetected Undetected 06/01/2020 MKTO RNA, TMA 4:21 PM CDT Comment: SARS-CoV-2 RNA absent. This result does not rule out COVID-19 in the patient, as the sensitivity of the test depends o n the timing of the specimen collection and the quality of the specim en. Result should be correlated with patient's history and clinical presentat ion. ----ADDITIONAL INFORMATION---- This test is performed using the Aptima SARS-CoV-2 assay ([employer] which has received Emergency Use Authori zation (EUA) by the U.S. Food and Drug Administration. Fact sheets for this Emergency Use Autho rization (EUA) assay can be found at the following links: For Healthcare Providers: https://www.Trudev a.gov/media/563256/download For Patients: https://www.fda.gov/media/ 203889/download Specimen Anatomical Collection Method Collection Time Receive d Time (Source) Location / / Volume Laterality Varies 05/31/2020 11:34 06/01/2020 (Nasopharynx) AM CDT 12:11 AM CDT Benny Escobar D.O. LAB MICROBIOLOGY - GENERAL O RDERABLES Performing Organization Address City/State/ZIP Code Phon e Number [facility]- [address] [place] [address] [place] [address] [address] documented in this encounter Visit Diagnoses Diagnosis Infection Upper Respiratory - Primary documented in this encounter Additional Health Concerns Infection Onset Date Last Indicated Resolved Time COVID19 Pending 05/31/2020 05/31/2020 06/01/2020 4:22 PM CDT documented as of this encounter
[2022-05-26 09:34] LABS: Hemoglobin A1C* 5.1 % (0-5.6)
[2022-05-26 14:16] LABS: Chloride* 103 mmol/L (96-114); Sodium* 138 mmol/L (135-149)
[2022-05-26 14:17] LABS: Potassium* 4.5 mmol/L (3.6-5.1)
[2022-05-26 14:19] LABS: Cholesterol* 168 mg/dL (90-199)
[2022-05-26 14:20] LABS: Blood Urea Nitrogen* 13 mg/dL (5-24); Calcium* 9.2 mg/dL (8.4-10.6); Carbon Dioxide* 26 mmol/L (20-32); Creatinine* 0.8 mg/dL (0.5-1.5); Estimated Glomerular Filt Rate 93 ml/min; Glucose* 93 mg/dL (60-115); Triglycerides* 92 mg/dL (40-149)
[2022-05-26 14:21] LABS: HDL Cholesterol* 50 mg/dL (>=50); LDL Cholesterol Calculated 100 mg/dL (<100)
== END 2022-05-26 08:51 | disposition home or self-care (01) ==
PROVIDERS: PCP Family Medicine; Visit Provider Family Medicine
DX: Z00.00 Encounter for general adult medical examination without abnormal findings (principal); Z12.4 Encounter for screening for malignant neoplasm of cervix; F41.1 Generalized anxiety disorder; Z13.6 Encounter for screening for cardiovascular disorders; Z13.1 Encounter for screening for diabetes mellitus
CPT/HCPCS: 80048; 80061; 83036; 87624; 88175

== ENCOUNTER 2022-06-16 10:00 | Outpatient (CLI) | payer OTHER, SELFPAY ==
--- OUTSIDE RECORDS SUMMARY | 2022-06-16 10:02 | XMS_ITS | Encounter Summary ---
:1980 Author Organization [facility] Address [address] [place] [address] Care Team Providers Name Role Phone Unavailable Primary Care Provider Unavailable Reason for Visit Reason Comments Med Refill Encounter Details Date Type Department Care Team Description 02/08/2018 Refill Department of Obstetrics and Zachery, Ernesto Ca Jr., Med Refill Gynecology in [place]oe Villagomez [place] [id number] [address] [place], [place] [address] [phone] Social History Tobacco Use Types Packs/Day Years Used Date Smoking Tobacco: Never Sex Assigned at Date Recorded Not on file documented as of this encounter Plan of Treatment Not on filedocumented as of this encounter Visit Diagnoses Not on filedocumented in this encounter
--- OUTSIDE RECORDS SUMMARY | 2022-06-16 10:02 | XMS_ITS | Encounter Summary ---
:1980 Author Organization [facility] Address [address] [place] [address] Care Team Providers Name Role Phone Unavailable Primary Care Provider Unavailable Reason for Visit Reason Comments PAT Nurse Jaye Encounter Details Date Type Department Care Team Description 05/31/2020 Clinical Communication Division of PAT Thompson Nurse Jaye [facility] Sylvia Lawrence [facility] [phone] [facility], in (Work) [place], [place] [address] [place] [address] Social History Tobacco Use Types Packs/Day Years Used Date Smoking Tobacco: Never Sex Assigned at Date Recorded Not on file documented as of this encounter Miscellaneous Notes Telephone Encounter - Ruy Thompson R.N., Metal Tube Cutter - 05/31/2020 8:16 AM CDT COVID-19 Nurse [...] to be swabbed for COVID-19, sent to [facility] located [address] Take frontage [...] and water aren't available, use a hand laundry operator finishing that contains at least 60% alcohol. Avoid [...] since you were tested. Educational Resource: https://www.cdc.gov/coronavirus/2019-ncov/ frcylox-vayjkju-lxqw/index.html RECOMMENDATIONS TESTING CRITERIA IS MET: Stay home [...] COVID- 19 test result. Education Resources: https://www.cdc.gov/coronavirus/2019- ncov/gg-oly-xrg-sick/lxyxv-lqod-kbsp.html SELF CARE FOR ALL PATIENTS: Take breaks [...] care: Yes The following references were used: [facility] novel coronavirus (COVID- 19) resources Nursing judgement documented in this encounter Plan of Treatment Not on filedocumented as of this encounter Visit Diagnoses Not on filedocumented in this encounter
--- OUTSIDE RECORDS SUMMARY | 2022-06-16 10:02 | XMS_ITS | Encounter Summary ---
:1980 Author Organization [facility] Address [address] [place] [address] Care Team Providers Name Role Phone Unavailable Primary Care Provider Unavailable Encounter Details Date Type Department Care Team Description 12/30/2015 Hospital Encounter HX [facility] Logan Hernandez Jr., M.D. [address] [place] [phone] (Wo rk) Social History Tobacco [...] Jr., M.D. - 12/30/2015 10:00 AM CDT [id number] CHIEF COMPLAINT/REASON FOR VISIT Patient complains of vaginal and vulvar irritation. It started a couple days after surgery which shehad 1 week ago. It started with some vaginal discharge and then vulvar irritation. It has been very irritating. She started Instant Alexandria soaks yesterday and has had some slight [...] a day. She will continue with Instant [place] soaks. She will let us know tomorrow how she is doing. Logan Hernandez M.D./deanna Electronically Signed By: LOGAN HERNANDEZ MD On: 12/30/2015 02:49 PM Source: [facility] MHSDOLBEYNONRADSYS Document Id: [id number] documented in this encounter Miscellaneous Notes Miscellaneous [...] 10 Substitutions [address] Route To Pharmacy - [facility] [id number] Signed by LOGAN HERNANDEZ MD From: KAY [...] Call to Pharmacy ( ) Patient will oyster picker Script ( ) Mail Rx to Patient Source: [facility] QVPN Document Id: [id number] Electronically signed by [facility] Fire Investigation Manager [id number] at 02/26/2017 3:19 PM CDT Miscellmeghana - Maddie Montemayor RJoseNJose - 12/30/2015 10:30 AM CDT Ball Sorter Documentation Ball Sorter Documentation Entered On: 12/30/2015 16:35 CDT Performed On: 12/30/2015 10:30 CDT by MADDIE MONTEMAYOR LPN Ball Sorter Documentation Exam/Procedure Performed : pelvic exam CD Ball Sorter Present : Yes CD Ball Sorter Name : Maddie Montemayor LPN Present in Room During Exam/Procedure : Alone MADDIE MONTEMAYOR LPN - 12/30/2015 16:35 CDT Source: [facility] WOWashCHART Document Id: [id number] CDT!6 Nenacellmeghana - Maddie Montemayor R.N. - 12/30/2015 10:05 AM CDT Adult Retail Performance Coach Intake/History Adult Retail Performance Coach Intake/History Entered On: 12/30/2015 10:05 CDT Performed [...] 12/30/2015 10:05 CDT General Info Languages : Barbadian Is Patient Female and 13-50 no hysterectomy [...] MONTEMAYOR LPN - 12/30/2015 10:05 CDT Source: [facility] POWERCHART Document Id: [id number] CDT!23 documented in this encounter Plan of [...] CDT) athologist Signature HXHSV PCR VAGINAL POWERCHART [facility] HSV 1 PCR, B Positive Negative POWERCHART HSV 2 PCR, B Negative Negative POWERCHART Comment: ADDITIONAL INFORMATIO N Analyte Specific Reagent: This test was developed and its performance characteristics determined b y [facility]. It has not been cleared or approved by the U.S. Food and Drug Administration. Test Performed by: [facility] - [address] [address] Pattern Shop Supervisor: Eloy Starr II, M.D., Ph.D. Specimen (Source) Anatomical Collection Method Collection Time Re ceived Time Location / / Volume Laterality Nicole Review 12/30/2015 10:33 AM CDT Logan Hernandez Jr., M.D. LAB MICROBIOLOGY - GENERAL O DEJA Performing Organization Address City/[facility] Phon e Number POWERCHART Wet Prep Exam, Urogenital (12/30/2015 10:33 AM CDT) P athologist Signature HXWet Prep POWERCHART HXFinal No yeast, POWERCHART Trichomonas , clue cells, or sperm seen. Specimen (Source) Anatomical Collection Method Collection Time Re ceived Time Location / / Volume Laterality Vagina 12/30/2015 10:33 AM CDT Logan Hernandez Jr., M.D. LAB MICROBIOLOGY - GENERAL O DEJA Performing Organization Address City/State/[facility] Phon e Number POWERCHART documented in this encounter Visit Diagnoses Not on filedocumented in this encounter
--- OUTSIDE RECORDS SUMMARY | 2022-06-16 10:02 | XMS_ITS | Clinical Summary ---
:1980 Author Organization [facility] Address [address] [place] [address] Care Team Providers Name Role Phone Unavailable Primary Care Provider Unavailable Source Comments Patient records contain information from all sites at [facility]. For routine questions regarding patient records, call [phone] during business hours, M-F 8:00 AM - 5:00 PM Central Time. Record requests for emergency care only can be directed to [phone] at any time.[facility] Medications Medication Sig Dispensed Refills Start [...] Health Maintenance Due Date Last Done Comments HIV Screening 1980 Hepatitis B Vaccines (1980 3 - 3-dose series) Hepatitis C Screening 1980 Lipid (Cholesterol) 1980 Screening Mammogram 1980 Cervical Cancer Screening 07/07/2020 07/07/2017 Depression Screening 10/03/2021 (Annual PHQ-2) COVID-19 Vaccine (3 - 02/02/2022 09/04/2021, 08/12/2021 Booster for Pfizer series) Influenza Vaccine (#1) 2022 08/27/2014, 10/20/2012, 08/17/2011, Additional history exists DTaP,Tdap,and Td Vaccines 05/26/2032 05/26/2022, 08/14/2009 , (3 - Td or Tdap) 08/14/2009 Pneumococcal vaccine (0-64 Aged Out No lo nger eligible years) based on patient 's age to complete this topic Insurance Payer Benefit Plan Subscriber ID Effective Phone Address Typ e / Group Dates [facility] CHOICE [id number] 2019-[employer] [phone] [address] [address] PPO PLUS [address] [place] [address]
--- OUTSIDE RECORDS SUMMARY | 2022-06-16 10:02 | XMS_ITS | Encounter Summary ---
:1980 Author Organization [facility] Address [address] [place] [address] Care Team Providers Name Role Phone Unavailable Primary Care Provider Unavailable Encounter Details Date Type Department Care Team Description 07/07/2017 Hospital Encounter HX NO MAPPING Robe Bingham Jr., M.D. [address], [place] [phone] (Wo rk) Social History [...] Coding Summary-Paper Based CODING DATE: 07/19/2017 FINAL [facility] STATUS: * Discharged to Home [...] CRISTOBAL Date Saved: 07/19/2017 02:33 pm [facility] Document Id: [id number] documented in this encounter Plan of Treatment Not on filedocumented as of this encounter Visit Diagnoses Not on filedocumented in this encounter
--- OUTSIDE RECORDS SUMMARY | 2022-06-16 10:02 | XMS_ITS | Encounter Summary ---
:1980 Author Organization [facility] Address [address] [place] [address] Care Team Providers Name Role Phone Unavailable Primary Care Provider Unavailable Encounter Details Date Type Department Care Team Description 01/24/2018 Orders Only Department of Obstetrics Logan Bingham Jr., and Gynecology in [place], [place] [address] [address] [place] [address] [phone] Social History Tobacco Use Types Packs/Day Years Used Date Smoking Tobacco: Never Sex Assigned at Date Recorded Not on file documented as of this encounter Plan of Treatment Not on filedocumented as of this encounter Visit Diagnoses Not on filedocumented in this encounter
--- OUTSIDE RECORDS SUMMARY | 2022-06-16 10:02 | XMS_ITS | Encounter Summary ---
:1980 Author Organization [facility] Address [address] [place] [address] Care Team Providers Name Role Phone Unavailable Primary Care Provider Unavailable Encounter Details Date Type Department Care Team Description 02/09/2018 Orders Only Department of Obstetrics and [place] [address] [address] Social History Tobacco Use Types Packs/Day Years Used Date Smoking Tobacco: Never Sex Assigned at Date Recorded Not on file documented as of this encounter Plan of Treatment Not on filedocumented as of this encounter Visit Diagnoses Not on filedocumented in this encounter
--- OUTSIDE RECORDS SUMMARY | 2022-06-16 10:02 | XMS_ITS | Encounter Summary ---
:1980 Author Organization [facility] Address [address] [place] [address] Care Team Providers Name Role Phone Unavailable Primary Care Provider Unavailable Encounter Details Date Type Department Care Team Description 01/27/2021 Orders Only [facility] Sa santo Brown M.D. [address] [place] [phone] (Wo rk) Social History Tobacco Use Types Packs/Day Years Used Date Smoking Tobacco: Never Sex Assigned at Date Recorded Not on file documented as of this encounter Plan of Treatment Not on filedocumented as of this encounter Visit Diagnoses Not on filedocumented in this encounter
--- OUTSIDE RECORDS SUMMARY | 2022-06-16 10:02 | XMS_ITS | Encounter Summary ---
:1980 Author Organization [facility] Address [address] [place] [address] Care Team Providers Name Role Phone Unavailable Primary Care Provider Unavailable Reason for Visit Reason Comments Med Refill Encounter Details Date Type Department Care Team Description 01/24/2018 Refill Department of Obstetrics and Zachery, Ernesto Ca Jr., Med [facility] [address] [place] [address] [place] [address] [phone] Social History Tobacco Use Types Packs/Day Years [...]
--- OUTSIDE RECORDS SUMMARY | 2022-06-16 10:02 | XMS_ITS | Encounter Summary ---
:1980 Author Organization [facility] Address [address] [place] [address] Care Team Providers Name Role Phone Unavailable Primary Care Provider Unavailable Encounter Details Date Type Department Care Team Description 12/22/2015 Hospital Encounter HX [facility] Logan Hernandez Jr., M.D. [address] [place] [phone] (Wo rk) Social History Tobacco [...] Jr., M.D. - 12/22/2015 2:15 PM CDT [id number] CHIEF COMPLAINT/REASON FOR VISIT Consultation for sterilization. [...] PREVENTIVE SERVICES: Patient receives preventative services at [facility] and these records are currently not available for my review. SOCIAL HISTORY Patient does not smoke. She occasionally drinks. She works in [employer]. PHYSICAL EXAMINATION VITAL SIGNS: weight 46.1kg, blood [...] wild Raphael scribe was present as a can sterilizer for pelvic exam. IMPRESSION/REPORT/PLAN 1. Sterilization: Patient elects to proceed with laparoscopic BTL, and this is scheduled for 12/23/15 at [facility]. I will check for any possible causes [...] 2. Follow up: Patient will present to [facility] on 12/23/2015 for BTL. She will contact the clinic prior to that time with questions or concerns. This document serves as a record of services personally performed by Logan Hernandez MD. It was created on their behalf by Saida Robles, a trained neuropsychology medical consultant. The creation of this record is basedon the scribe's personal observations and the provider's statements to them. This document has been c hecked and approved by the attending provider. Logan Hernandez M.D./liliam Electronically Signed By: LOGAN HERNANDEZ MD On: 12/22/2015 03:00 PM Source: [facility] MHSDOLBEYNONRADSYS Document Id: [id number] documented in this encounter Miscellaneous Notes Telephone [...] irritation with draining. Any other questions call [phone] Message: Advice/Action: Source used: ( ) Verbalizes [...] back cell phone number ( ) Source: [facility] POWERCHART Document Id: [id number] Electronically signed by Conversion, [facility] Training And Development Head [id number] at 02/26/2017 3:19 PM CDT Telephone Encounter [...] She did everything that you suggested yesterday. [phone] Addendum by LOGAN HERNANDEZ MD on December [...] Subject: FW: *Phone Message/Zachery From: YOSEF SIDDIQUI ([facility] Health Care Recruiter) To: Obstetrics/Gynecology Nurse; Sent: 12/29/2015 08:04:26 CDT [...] she can do? Please call her at [phone] Message: Advice/Action: Source used: ( ) Verbalizes [...] back cell phone number ( ) Source: [facility] POWERCHART Document Id: [id number] Miscellaneous - Maddie Montemayor RJoseN. - 12/22/2015 3:11 PM CDT Mohel Documentation Mohel Documentation Entered On: 12/22/2015 15:12 CDT Performed On: 12/22/2015 15:11 CDT by MADDIE MONTEMAYOR LPN Mohel Documentation Exam/Procedure Performed : pelvic exam CD Mohel Present : Yes CD Mohel Name : Saida Robles neuropsychology medical consultant Present in Room During Exam/Procedure : Alone MADDIE MONTEMAYOR LPN - 12/22/2015 15:11 CDT Source: [facility] POWERCHART Document Id: [id number] CDT!6 Telephone Encounter - Maddie Montemayor RBoo - 12/22/2015 2:54 PM CDT FB surgery prior auth Document Contains Addenda Addendum by LYLE PHELPS on December 23, 2015 10:19:08 CDT From: LYLE PHELPS ([facility] Underwear Welter/Prior Authorizations) To: Obstetrics/Gynecology Nurse; Sent: 12/23/2015 10:19:08 CDT Subject: RE: FB surgery prior auth No auth needed per [employer] From: MADDIE MONTEMAYOR LPN ( Obstetrics/Gynecology Nurse) To: [facility] Underwear Welter/Prior Authorizations; Sent: 12/22/2015 14:54:48 CDT ! Subject: FB surgery prior auth [facility] Surgery Clinic Checklist Patient Contact Number: [phone] Surgeon: Zachery Surgical Service: (_) Orthopedics (_) General surgery (_) Ophthalmology (_) Podiatry (_) ENT (_) Urology (x) OB / Gynecology (_) Other Date of Surgery: 12-23-15 Place of Surgery: [facility] Pre-Admit FIN: _ Procedure (as written on Consent): laparoscopic bilateral tubal coagulation Right, Left, Bilateral, N/A: bilateral Diagnosis (reason for surgery): requests sterilization ICD-10: Z30.2 CPT: 40492 Work Comp: (_) No (_) Yes Surgeon [...] Yes X-Ray Location (if not done in [facility]): _ CPM Post-op: (_) No (_) Yes- please make sure MD places order If Total Joint Case: Type of Prosthesis: _ Additional equipment: _ Has other side been done: (_) No (_) Yes Source: [facility] Avillion Document Id: [id number] Electronically signed by Leland [facility] Training And Development Head [id number] at 02/26/2017 3:19 PM CDT Miscellaneous - Maddie Montemayor, R.N. - 12/22/2015 2:19 PM CDT Adult Commercial Maintenance Technician Intake/History Adult Commercial Maintenance Technician Intake/History Entered On: 12/22/2015 14:21 CDT Performed [...] 12/22/2015 14:19 CDT General Info Languages : Tuvaluan Is Patient Female and 13-50 no hysterectomy [...] MONTEMAYOR LPN - 12/22/2015 14:19 CDT Source: [facility] [employer] Document Id: [id number] CDT!25 documented in this encounter Plan of Treatment Not on filedocumented as of this encounter Visit Diagnoses Not on filedocumented in this encounter
--- OUTSIDE RECORDS SUMMARY | 2022-06-16 10:02 | XMS_ITS | Encounter Summary ---
:1980 Author Organization [facility] Address [address] [place] [address] Care Team Providers Name Role Phone Unavailable Primary Care Provider Unavailable Encounter Details Date Type Department Care Team Description 01/08/2016 Hospital Encounter HX [facility] Logan Hernandez Jr., M.D. [address] [place] [phone] (Wo rk) Social History Tobacco [...] documented in this encounter Progress Notes Logan Hernanedz Jr., M.D. - 01/08/2016 9:43 AM CDT [id number] CHIEF COMPLAINT/REASON FOR VISIT Post-op. HISTORY OF [...] that wild Kuhn scribe, was present as swimming pool maintenance supervisor for pelvic exam. RECTUM: Deferred. GENITALIA: External [...] their behalf by Saida Robles, a trained mobile paramedical examiner. The creation of this record is basedon the scribe's personal observations and the provider's statements to them. This document has been c hecked and approved by the attending provider Logan Hernandez M.D./liliam Electronically Signed By: LOGAN HERNANDEZ MD On: 01/08/2016 12:54 PM Modified by and Electronically Signed by: LOGAN HERNANDEZ MD On: 01/08/2016 12:54 PM Source: [facility] MHSDOLBEYNONRADSYS Document Id: [id number] documented in this encounter Miscellaneous Notes Miscellaneous - Maddie Montemayor, R.N. - 01/08/2016 10:25 AM CDT Historical Archeologist Documentation Historical Archeologist Documentation Entered On: 01/08/2016 10:25 CDT Performed On: 01/08/2016 10:25 CDT by MADDIE MONTEMAYOR LPN Historical Archeologist Documentation Exam/Procedure Performed : pelvic exam CD Historical Archeologist Present : Yes CD Historical Archeologist Name : wild Kuhn scribe Present in Room During Exam/Procedure : Alone MADDIE MONTEMAYOR LPN - 01/08/2016 10:25 CDT Source: [facility] POWERCHART Document Id: [id number] CDT!6 Miscellaneous - Kalee Pedersen L.PJoseNJose - 01/08/2016 10:10 AM CDT Adult Manager Corporate Responsibility Intake/History Adult Manager Corporate Responsibility Intake/History Entered On: 01/08/2016 10:11 CDT Performed [...] 01/08/2016 10:10 CDT General Info Languages : German Is Patient Female and 13-50 no hysterectomy [...] PEDERSEN LPN - 01/08/2016 10:10 CDT Source: [facility] POWERCHART Document Id: [id number] CDT!24 documented in this encounter Plan of Treatment Not on filedocumented as of this encounter Visit Diagnoses Not on filedocumented in this encounter
--- OUTSIDE RECORDS SUMMARY | 2022-06-16 10:02 | XMS_ITS | Encounter Summary ---
:1980 Author Organization [facility] Address [address] [place] [address] Care Team Providers Name Role Phone Unavailable Primary Care Provider Unavailable Encounter Details Date Type Department Care Team Description 07/07/2017 Hospital Encounter HX [facility] Logan Hernandez Jr., M.D. [address] [place] [address] [phone] (Wo rk) Social History Tobacco [...] Jr., M.D. - 07/07/2017 9:43 AM CDT [id number] CHIEF COMPLAINT/REASON FOR VISIT Annual examination. HISTORY [...] SERVICES: Patient receives preventative services at [facility] and these records are currently not [...] and no nipple discharge. Please note that director biomedical engineering, Lima Cantu, was present as brush finisher for breast exam. HEART: Regular rate and [...] without masses or tenderness. Please note that director biomedical engineering, Lima Cantu, was presentas brush finisher for pelvic exam. RECTUM: Deferred. GENITALIA: External genitalia, Bartholin's, urethral, and [place]'s glands within normal limits. DIAGNOSTIC Pap smear was done today with results pending. IMPRESSION/REPORT/PLAN 37-year-old 2, para 2-0-0-2 female status post BTC with normal menstrual cycles. Significantfor vaginal fissures and anxiety. Normal ACTIVITIES MANAGER examination besides for closed fissure. PLAN: 1. [...] and regular soaking such as with Instant [facility]. I discouraged using toilet paper. We may [...] She will contact the clinic with any FISHER QUAHOG related concerns. This document serves as a record of services personally performed by Logan Hernandez MD. It was created on their behalf by Lima Cantu, a trained director biomedical engineering. The creation of this record is based on the scribe's personal observations and the provider's statements to them. This document has been check ed and approved by the attending provider. Logan Hernandez M.D./shiela Electronically Signed By: LOGAN HERNANDEZ MD On: 07/07/2017 12:50 PM Source: [facility] MHSDOLBEYNONRADSYS Document Id: [id number] documented in this encounter Miscellaneous Notes Miscellaneous - Logan Hernandez Jr., M.D. - 07/18/2017 9:47 AM CDT From: LOGAN HERNANDEZ MD To: KIP GREENE Sent: 07/18/2017 09:47:07 CDT joe Shin for taking my call. Source: [facility] POWERCHART Document Id: [id number] Telephone Encounter - Kalee Pedersen L.P.N. - 07/15/2017 3:41 PM CDT FW: Follow-up on Test From: KALEE PEDERSEN LPN ( Obstetrics/Gynecology Nurse) To: LOGAN HERNANDEZ MD; Sent: 07/15/2017 15:41:18 CDT Subject: FW: Follow-up on Test From: KIP GREENE To: [facility] (FISHER QUAHOG) ( Obstetrics/Gynecology Nurse) Sent: 07/15/2017 03:39 p.m. [...] this next week if you wish. Source: [facility] Document Id: [id number] Logan Pino Jr., M.D. - 07/15/2017 1:12 PM CDT From: LOGAN HERNANDEZ MD To: KIP GREENE Sent: 07/15/2017 13:12:03 CDT Kip, your pap is ok. HPV test shows you have an exposure to the HPV virus, but not to the types weare concerned about neo are linked to cervical cancer. I would repeat your pap in one year. Happy totalk about this next week if you wish. Source: [facility] Document Id: [id number] [place] - Court Romo L.P.N. - 07/07/2017 9:56 AM CDT Adult Deckhand Fishing Vessel Intake/History Adult Deckhand Fishing Vessel Intake/History Entered On: 07/07/2017 9:59 CDT Performed [...] Information Given By : Patient Languages : Tamazight Is Patient Female and 13-50 no hysterectomy [...] ROMO LPN - 07/07/2017 9:56 CDT Source: [facility] Document Id: [id number] CDT!30 documented in this encounter Plan of Treatment Not on filedocumented as of this encounter Visit Diagnoses Not on filedocumented in this encounter
--- OUTSIDE RECORDS SUMMARY | 2022-06-16 10:02 | XMS_ITS | Encounter Summary ---
:1980 Author Organization [facility] Address [address] [place] [address] Care Team Providers Name Role Phone Unavailable Primary Care Provider Unavailable Reason for Visit Reason Onset Date Comments Outpatient COVID-19 Testing 05/31/2020 Encounter Details Date Type Department Care Team Description 05/31/2020 External Outreach Department of Benny Escobar Infect ion Upper Internal Medicine in J, D[facility]O. Respiratory ([place], [place] [address] Dx) [address] [place] [phone] Social History Tobacco Use Types Packs/Day [...] RNA, V Symptomatic (05/31/2020 11:34 AM CDT) [facility] Method Time Signature SARS-CoV-2 Swab, 06/01/2020 [...] is performed using the Aptima SARS-CoV-2 assay ([employer] which has received Emergency Use Authori zation (EUA) by the U.S. Food and Drug Administration. Fact sheets for this Emergency Use Autho rization (EUA) assay can be found at the following links: For Healthcare Providers: https://www.[place] a.gov/media/605499/download For Patients: https://www.fda.gov/media/ 965650/download Specimen Anatomical Collection Method Collection Time Receive d Time (Source) Location / / Volume Laterality Varies 05/31/2020 11:34 06/01/2020 (Nasopharynx) AM CDT 12:11 AM CDT Benny Escobar D.O. LAB MICROBIOLOGY - GENERAL O RDERABLES Performing Organization Address City/State/ZIP Code Phon e Number [facility]- [address] [place] [id number] [place] [address] [address] documented in this encounter Visit Diagnoses Diagnosis Infection Upper Respiratory - Primary documented in this encounter Additional Health Concerns Infection Onset Date Last Indicated Resolved Time COVID19 Pending 05/31/2020 05/31/2020 06/01/2020 4:22 PM CDT documented as of this encounter
--- NOTE | 2022-06-16 10:15 | CRLHL7_ITS ---
For Patients: As a result of the Century Cures Act, medical imaging exams and procedure reports are released immediately into your electronic medical record. You may view this report before your referring provider. If you have questions, please contact your health care provider. BILATERAL DIGITAL SCREENING MAMMOGRAM WITH COMPUTER-AIDED DETECTION, 06/16/2022 CLINICAL HISTORY: : Routine screening exam. COMPARISON: None TECHNIQUE: Digital mammogram in CC and MLO projections including computer-aided detection (CAD). BREAST COMPOSITION: The breasts are heterogeneously dense, which may obscure small masses. FINDINGS: RIGHT Breast: No suspicious findings. LEFT Breast: Focal asymmetric density in the upper left breast MLO view only, 6 cm from the nipple. IMPRESSION: LEFT breast asymmetry/mass. RECOMMENDATIONS: Additional mammographic views of the LEFT breast including 3D CC and 3D MLO. LEFT breast ultrasound may also be required. The [facility] will contact the patient for follow-up. BI-RADS Category 0: Incomplete - Need Additional Imaging Evaluation and/or Prior Mammograms for Comparison. A lay language report of this examination will be provided to the patient. Dictated by Guy Phelan MD @ 06/16/2022 12:01:41 PM CRL:gustavo RD/Dictated by: Guy Phelan MD @ 06/16/2022 12:01:00 PM (Electronically Signed)
== END 2022-06-16 10:01 | disposition home or self-care (01) ==
PROVIDERS: PCP Family Medicine; Visit Provider Family Medicine
DX: Z12.31 Encounter for screening mammogram for malignant neoplasm of breast (principal); N63.20 Unspecified lump in the left breast, unspecified quadrant
CPT/HCPCS: 77063; 77067

== ENCOUNTER 2022-06-23 09:29 | Outpatient (CLI) | payer OTHER, SELFPAY ==
--- NOTE | 2022-06-23 09:45 | CRLHL7_ITS ---
For Patients: As a result of the Cures Act, medical imaging exams and procedure reports are released immediately into your electronic medical record. You may view this report before your referring provider. If you have questions, please contact your health care provider. DIGITAL DIAGNOSTIC LEFT MAMMOGRAM USING TOMOSYNTHESIS AND COMPUTER-AIDED DETECTION LEFT BREAST ULTRASOUND CLINICAL HISTORY: LEFT breast mass/asymmetry. COMPARISON: 06/16/2022. TECHNIQUE: Digital LEFT mammogram in two projections. Tomosynthesis and CAD utilized. Real-time ultrasound imaging of LEFT breast with imaging documentation. BREAST COMPOSITION: The breast is heterogeneously dense, which may obscure small masses. FINDINGS: 3D CC and 3D MLO LEFT breast mammogram submitted. Decreased conspicuity of the previously noted asymmetric density. No underlying mass or architectural distortion. No adenopathy or suspicious calcifications. Targeted LEFT breast ultrasound performed 1 o`clock 6 cm from the nipple. Normal dense fibroglandular tissue is present. No fibrocystic change or mass. IMPRESSION: Normal LEFT breast mammograms and targeted LEFT breast ultrasound. No evidence of malignancy. RECOMMENDATIONS: Annual BILATERAL screening mammography. Results and recommendations discussed with the patient. BI-RADS Category 2: Benign A lay language report of this examination will be provided to the patient. Dictated by Guy Phelan MD @ 06/23/2022 10:50:06 AM jj/Dictated by: Guy Phelan MD @ 06/23/2022 10:48:00 AM (Electronically Signed)
--- NOTE | 2022-06-23 10:15 | CRLHL7_ITS ---
For Patients: As a result of the Cures Act, medical imaging exams and procedure reports are released immediately into your electronic medical record. You may view this report before your referring provider. If you have questions, please contact your health care provider. PLEASE SEE DIGITAL DIAGNOSTIC LEFT MAMMOGRAM PERFORMED SAME DAY CRL:roque nevarez/Dictated by: Guy Phelan MD @ 06/23/2022 10:50:00 AM (Electronically Signed)
== END 2022-06-23 09:30 | disposition home or self-care (01) ==
LOC: MAMMO 09:30
PROVIDERS: PCP Family Medicine; Visit Provider Family Medicine
DX: N63.20 Unspecified lump in the left breast, unspecified quadrant (principal); R92.8 Other abnormal and inconclusive findings on diagnostic imaging of breast
CPT/HCPCS: 76642; 77065; 77066; G0279

== ENCOUNTER 2022-07-12 12:12 | Outpatient (CLI) | payer OTHER, SELFPAY ==
[2022-07-12 14:54] LABS: Chlamydia DNA Amplified* NOT DETECTED (No Detected); GC DNA Amplified* NOT DETECTED (No Detected)
== END 2022-07-12 12:13 | disposition home or self-care (01) ==
PROVIDERS: PCP Family Medicine; Visit Provider Obstetrics & Gynecology
DX: N89.8 Other specified noninflammatory disorders of vagina (principal)
CPT/HCPCS: 87070; 87186; 87491; 87591

== ENCOUNTER 2023-06-10 09:09 | Outpatient (CLI) | payer OTHER, SELFPAY | END 2023-06-10 09:10 | disposition home or self-care (01) | LOC: NFLDREF 06-11 12:35 | PROVIDERS: PCP Family Medicine; Referring Provider Family Medicine; Visit Provider Family Medicine | DX: R30.0 Dysuria (principal); G43.829 Menstrual migraine, not intractable, without status migrainosus; R11.0 Nausea; N39.0 Urinary tract infection, site not specified | CPT/HCPCS: 87086 ==

== ENCOUNTER 2023-08-17 09:15 | Outpatient (CLI) | payer OTHER, SELFPAY | END 2023-08-17 09:16 | disposition home or self-care (01) | LOC: NFLDREF 08-19 08:35 | PROVIDERS: PCP Family Medicine; Referring Provider Family Medicine; Visit Provider Obstetrics & Gynecology | DX: R87.615 Unsatisfactory cytologic smear of cervix (principal); R10.2 Pelvic and perineal pain | CPT/HCPCS: 87491; 87591 ==

== ENCOUNTER 2023-09-12 13:32 | Outpatient (CLI) | payer OTHER, SELFPAY ==
--- NOTE | 2023-09-12 13:40 | CRLHL7_ITS ---
For Patients: As a result of the Century Cures Act, medical imaging exams and procedure reports are released immediately into your electronic medical record. You may view this report before your referring provider. If you have questions, please contact your health care provider. BILATERAL SCREENING MAMMOGRAM WITH COMPUTER-AIDED DETECTION TECHNIQUE: CC and MLO views were obtained. These mammographic images have been obtained using full-field digital technique. These mammographic images were interpreted with the benefit of computer-aided detection. COMPARISON FILM: 06/16/22, (LT 06/23/22). FINDINGS: The breasts are extremely dense, which lowers the sensitivity of mammography IMPRESSION: There is no radiographic evidence for malignancy. ASSESSMENT: BI-RADS Category 1: Negative RECOMMENDATION: Routine screening mammogram in 1 year. A lay language report of this examination will be provided to the patient. Guy Phealn M.D. Diagnostic Radiologist [email or web address] YONIS/Dictated by: Guy Phelan MD @ 09/13/2023 11:29:00 AM (Electronically Signed)
== END 2023-09-12 13:33 | disposition home or self-care (01) ==
LOC: MAMMO 13:33
PROVIDERS: PCP Family Medicine; Visit Provider Family Medicine
DX: Z12.31 Encounter for screening mammogram for malignant neoplasm of breast (principal); R92.2 Inconclusive mammogram
CPT/HCPCS: 77067

== ENCOUNTER 2023-09-12 13:35 | Outpatient (CLI) | payer OTHER, SELFPAY ==
--- NOTE | 2023-09-12 14:00 | CRLHL7_ITS ---
For Patients: As a result of the Century Cures Act, medical imaging exams and procedure reports are released immediately into your electronic medical record. You may view this report before your referring provider. If you have questions, please contact your health care provider. CLINICAL HISTORY: Pelvic pain TECHNIQUE: 2D guo scale ultrasound. In addition color Doppler and spectral Doppler analysis was performed of the pelvis using a transabdominal and transvaginal approach. FINDINGS: The myometrium has a normal uniform echotexture. The uterus measures 8.7 x 4.4 x 5.1 cm. The endometrial lining measures 10 mm in thickness. The right ovary measures 3.1 x 1.4 x 2.7 cm in size and the left ovary measures 3.0 x 2.0 x 1.7 cm. The ovaries demonstrate normal arterial and venous blood flow on color Doppler and spectral Doppler analysis. There are no suspicious fluid collections within the cul-de-sac. IMPRESSION: No ovarian torsion or adnexal mass. No excess pelvic free fluid. Dictated by Guy Phelan MD @ 09/13/2023 9:45:28 AM (Electronically Signed)
== END 2023-09-12 13:36 | disposition home or self-care (01) ==
LOC: US 13:36
PROVIDERS: PCP Family Medicine; Visit Provider Obstetrics & Gynecology
DX: R10.2 Pelvic and perineal pain (principal)
CPT/HCPCS: 76830; 76856; 93976

== ENCOUNTER 2024-12-07 08:48 | Outpatient (CLI) | payer OTHER, SELFPAY ==
[2024-12-08 20:53] LABS: HPV Source Cervix; HPV, High Risk by TMA Not Detected
== END 2024-12-07 08:49 | disposition home or self-care (01) ==
PROVIDERS: PCP Family Medicine; Visit Provider Obstetrics & Gynecology
DX: D06.9 Carcinoma in situ of cervix, unspecified (principal)
CPT/HCPCS: 87624; 87625; 88141; 88142